=== PATIENT | male | born 1945 | race Caucasian/White ===

== ENCOUNTER 2022-11-29 16:46 | Emergency (ER) | payer MEDICARE, SELFPAY ==
--- NOTE | 2022-11-29 16:57 | ED.SKABFB ---
HPI - Skin/Abscess/Foreign Bdy General Chief complaint: Extremity Injury, Lower Stated complaint: right knee pain Time Seen by Provider: 11/29/22 16:57 Source: patient and RN notes reviewed Mode of arrival: ambulatory Limitations: dementia History of Present Illness HPI narrative: 77-year-old male with history of diabetes presents concern for redness, warmth to the right lower leg. He reports he bumped the leg last week and had a hematoma. Reports the hematoma has gone down but he now has redness, swelling, warmth, pain to the anterior leg. He denies fever, aches, chills, sweats. Reports they are in town for a . He reports chronic low pulse ox. Denies any change in respiratory symptoms MD complaint: other (Redness) Related Data Home Medications Medication Instructions Recorded Confirmed bumetanide 1 mg tablet mg 11/29/22 carvedilol 3.125 mg tablet mg 11/29/22 clopidogrel 75 mg tablet mg 11/29/22 fluticasone fur. 200 mcg-umeclid inhalation 11/29/22 62.5 mcg-vilant 25 mcg inhalat.powder (Trelegy Ellipta) glipizide 10 mg tablet mg 11/29/22 metformin 1,000 mg tablet mg 11/29/22 potassium chloride 10 mEq meq PO 11/29/22 tablet,extended release simvastatin 80 mg tablet mg 11/29/22 tamsulosin 0.4 mg capsule mg PO 11/29/22 ticagrelor 90 mg tablet (Brilinta) mg 11/29/22 venlafaxine 75 mg tablet mg 11/29/22 Allergies Allergy/AdvReac Type Severity Reaction Status Date / Time No Known Allergies Allergy Verified 11/29/22 17:10 Review of Systems Review of Systems: CONSTITUTIONAL: Denies malaise, chills, sweats, or fever. EYES: Denies redness, or discharge. ENT: Denies rhinorrhea, congestion, swollen lips, swollen tongue CARDIOVASCULAR: Denies chest pain, palpitations, or edema. RESPIRATORY: Denies cough or dyspnea. GASTROINTESTINAL: Denies abdominal pain, nausea, vomiting SKIN: Reports redness, swelling tenderness of the right anterior lower leg. Denies purulent drainage, vesicles, bullae, numbness, pain beyond proportion MUSCULOSKELETAL: Denies joint pain or myalgia. NEUROLOGIC: Denies headache. All systems reviewed & are unremarkable except as noted in HPI and below PMFSH Comments At time of signature, agree with nursing past medical, surgical, social and family history. There is no relevant family history pertinent to the presenting complaint Exam Narrative: GENERAL: Well-appearing, well-nourished, and in no acute distress. HEAD: Normocephalic, atraumatic. EYES: PERRLA, conjunctivae clear ENT: Mucous membranes moist. NECK: Supple. No lymphadenopathy CHEST: Clear to auscultation. No respiratory distress. HEART: Regular rate and rhythm. SKIN: Warm, dry. Erythema, induration, tenderness, warmth with sharp margins noted right anterior lower leg, approximate cm healing hematoma noted that is slightly fluctuant. No vesicles, bullae, necrosis, ecchymosis, crepitus noted. NEURO: Alert and oriented x3. PSYCH: Normal mood and affect Course Course Emergency Course: Fluctuant area does not appear to be abscess, rather a resolving hematoma. Patient reports the area was there after his contusion and has gotten smaller. No indication for drainage at this time. Patient reports his pulse ox is typically 85, he denies any respiratory distress Patient is aware of diagnosis, understands and agrees to treatment plan. Anticipatory guidance given. Patient agrees to follow-up as directed and is aware of reasons to seek care at the emergency department. Portions of this record may have been created with voice recognition software Level of Care: Express Care Visit Vital Signs Vital signs: Reviewed. MDM - Skin/Abscess/Foreign Bdy MDM Narrative Medical decision making narrative: Does not appear at this time to be erythema multiforme, bullous, SJS, TEN; no evidence at this time to suggest RMSF, NSTI, endocarditis or Lyme disease; patient looks well, nontoxic and is tolerating oral intake; no neurologic si
[2022-11-29 17:01] VITALS: BP 155/77; PULSE 99; RESP 16; TEMP 36.3; O2SAT 85
[2022-11-29 17:11] VITALS: BP 155/77; PULSE 99; RESP 16; TEMP 36.3; O2SAT 85
== END 2022-11-29 17:16 | disposition home or self-care (01) ==
PROVIDERS: Emergency Provider Nurse Practitioner
DX: L03.115 Cellulitis of right lower limb (principal); E11.9 Type 2 diabetes mellitus without complications
CPT/HCPCS: 99213; G0463